=== PATIENT | female | born 1960 | race Caucasian/White ===

== ENCOUNTER 2018-02-24 11:25 | Inpatient (IN) | payer OTHER ==
[~2018-02-24] VITALS: Ht 157.5 cm; Wt 62.6 kg
[~2018-02-24 11:25] MED LIST: ABILIFY 2 MG2 MG OR; ABILIFY1 MG/1 ML PO; ALEVE220 M1 PO; CLONAZEPAM OR; MECLIZINE 25 MG25 M1 PO; RITALIN20 MG PO; TOPAMAX100 MG PO; VALIUM5 MG PO; WELLBUTRIN XL300 M1 PO; ZOLOFT100 MG PO
[2018-02-24 11:35] VITALS: BP 118/60
[2018-02-24 12:16] LABS: ABSOLUTE NEUTROPHILS 5.8 thou/uL (1.4-8.2); BASOPHILS 0.4 % (0.0-2.0); EOSINOPHILS 0.3 % (0.0-3.0); HEMATOCRIT 44.6 % (37.0-47.0); HEMOGLOBIN 15.2 gm/dL (12.0-15.0); LYMPHOCYTES 22.4 % (24.0-44.0); MCH 30.9 pg (26.0-34.0); MCHC 34.2 g/dL (28.0-37.0); MCV 90.3 fL (80.0-100.0); MONOCYTES 9.4 % (1.0-8.0); PLATELET COUNT 335 thou/uL (150-400); POLYS 67.5 % (36.0-66.0); RBC 4.94 mil/uL (4.20-5.00); RDW 14.6 % (10.5-14.5); WBC 8.6 thou/uL (4.0-11.0)
[2018-02-24 12:24] LABS: CALCIUM 8.6 mg/dL (8.5-10.1); POTASSIUM 3.2 mmol/L (3.5-5.1)
[2018-02-24 12:31] LABS: APTT 34.8 Seconds (24.5-32.8); PROTIME 9.5 Seconds (9.3-11.4)
[2018-02-24] MEDS ORDERED: CYMBALTA60 MG PO (14:40)
[2018-02-24] MEDS ORDERED: ARIPIPRAZOLE2 MG PO (14:40)
[2018-02-24] MEDS ORDERED: CLONAZEPAM2 MG PO (14:41)
[2018-02-24] MEDS ORDERED: SINGULAIR 10 MG10 M1 PO (14:43)
[2018-02-24 15:31] VITALS: BP 120/57
[2018-02-24 17:07] LABS: ALBUMIN 3.2 g/dL (3.4-5.0); DIRECT BILIRUBIN 0.1 mg/dL (<0.1-0.3); MAGNESIUM 1.8 mg/dL (1.8-2.4); TOTAL BILIRUBIN 0.2 mg/dL (<0.1-1.0); TOTAL PROTEIN 7.7 g/dL (6.4-8.2)
[2018-02-24 19:16] VITALS: BP 98/42
--- NOTE | 2018-02-24 20:58 | NUR ---
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 SHE IS CURRENTLY RETIRED AND LIVES WITH HER WHO IS AT BEDSIDE. SHE CARES FOR DOGS AND RECENTLY ONE OF THE DOGS . PATIENT STATES HAVING HISTORY OF DEPRESSION AND ANXIETY WHICH SHE SAYS RUNS IN HER FAMILY. PATIENT HAS PAIN FROM HEADACHED AND ABDOMINAL AND CHEST PAIN FROM COUGHING. TYLENOL HELPED REDUCE THE PAIN. SPUTUM CUP IS AT BEDSIDE. SHE IS ON RESPIRATORY DROPLET PRECAUTIONS.
[2018-02-25 02:37] VITALS: BP 118/72
[2018-02-25 05:31] LABS: HEMATOCRIT 37.7 % (37.0-47.0); MCH 30.6 pg (26.0-34.0); MCHC 33.7 g/dL (28.0-37.0); PLATELET COUNT 312 thou/uL (150-400); RBC 4.15 mil/uL (4.20-5.00); RDW 14.5 % (10.5-14.5)
[2018-02-25 05:33] LABS: HEMOGLOBIN 12.7 gm/dL (12.0-15.0)
[2018-02-25 05:52] LABS: ALBUMIN 2.3 g/dL (3.4-5.0); CALCIUM 7.7 mg/dL (8.5-10.1); CREATININE 0.7 mg/dL (0.6-1.0); MAGNESIUM 1.8 mg/dL (1.8-2.4); POTASSIUM 3.3 mmol/L (3.5-5.1); TOTAL BILIRUBIN 0.2 mg/dL (<0.1-1.0); TOTAL PROTEIN 5.9 g/dL (6.4-8.2)
[2018-02-25 06:27] LABS: ABSOLUTE NEUTROPHILS 2.6 thou/uL (1.4-8.2)
[2018-02-25 06:28] LABS: PLATELET ESTIMATE NORMAL
--- NOTE | 2018-02-25 06:37 | NUR ---
Pt a/o x 4. RA. VSS. On droplet precaution for positive flu. C/o chest pain upon cough. Infrequent non-productive cough, no sputum. No apparent distress noted at this time. Fall precautions maintained. Call light within reach. Will continue to monitor.
[2018-02-25 08:00] VITALS: BP 113/59
--- NOTE | 2018-02-25 08:06 | EKG ---
[address] [place] [address] ELECTROCARDIOGRAM REPORT Name: DANEMILTON Gonsales Room #: 458-P ADM IN M.R.#: [id number] Admission: 02/24/18 Attend Phys: Ozzy Choe MD Discharge: Date of : 64 Report #: [id number] THIS REPORT FOR: //name// [facility] ED Test Date: 2018-02-24 Test Time: 14:21:59 Pat Name: MILTON VELA Department: Room: 458 Gender: F Wastewater Engineer: PARAS : [id number] Requested By: Loc Ledbetter Order Number: [id number] MD: Jesús Platt Measurements Intervals [place] Rate: 100 P: 58 KS: 135 QRS: 56 QRSD: 87 T: 268 QT: 317 QTc: 409 Interpretive Statements Sinus tachycardia Low voltage, extremity and precordial leads Nonspecific ST and T wave abnormality Compared to ECG 01/02/2010 07:27:00 Low QRS voltage now present ST and T wave abnormality is new Electronically Signed On 02-25-2018 8:06:04 HAND SPRING REPAIRER HELPER by Jesús Platt [email or web address] <ELECTRONICALLY SIGNED> By: Jesús Platt MD, FACC 02/25/18 0806 1421 1421 Jesús Platt MD, [facility] /EPI
[2018-02-25 20:06] VITALS: BP 122/76
--- NOTE | 2018-02-26 04:25 | NUR ---
ASSUMED CARE AT START OF SHIFT, PT HAVE NON-PRODUCTIVE COUGH, DNEIS PAIN OR NAUSEA. DISCUSSED PLAN OF CARE AND AGREEABLE, GAMING COMMISSIONER SR . WILL CONITNUE CURRENT PLAN OF CARE.
[2018-02-26 04:26] VITALS: BP 134/82
[2018-02-26 05:26] LABS: HEMATOCRIT 36.3 % (37.0-47.0); MCH 29.7 pg (26.0-34.0); MCHC 33.1 g/dL (28.0-37.0); MCV 89.8 fL (80.0-100.0); RBC 4.04 mil/uL (4.20-5.00); RDW 14.2 % (10.5-14.5); WBC 6.8 thou/uL (4.0-11.0)
[2018-02-26 05:35] LABS: CALCIUM 8.2 mg/dL (8.5-10.1); CREATININE 0.7 mg/dL (0.6-1.0); POTASSIUM 3.3 mmol/L (3.5-5.1)
[2018-02-26 07:32] VITALS: BP 147/84
[2018-02-26] MEDS ORDERED: CEFDINIR300 MG PO (15:55)
[2018-02-26] MEDS ORDERED: OSELB75 PO (15:55)
[2018-02-26 16:08] VITALS: BP 147/84
--- NOTE | 2018-02-26 17:15 | NUR ---
ASSUMED CARE OF PT AT APPROX 0700. PT IS ALERT AND ORIENTED X4, MONITORED ON TELE AND ABLE TO MAINTAIN 02 SAT >90 ON RA. DENIES PAIN AND SOA. COMPLAINS OF NAUSEA THAT IS RESOLVED WITH PRN MEDICATION. PT ANXIOUS FOR DC. ASSESSMENT CHARTED. RECIEVED ORDERS FOR DC. COMLETED DC. WENT OVER NEW MEDICATIONS AND DISCHARGE INSTRUCTIONS. PATIENT DENIES ANY FURTHER CONCERNS/COMPLAINTS. LEFT IN WHEELCHAIR VIA VOLUNTEER TRANSPORT. ALL BELONGINGS WITH PT AND . PT HAS MET POC GOALS.
== END 2018-02-26 17:34 | disposition home or self-care (01) | DRG 195 ==
LOC: ER 11:25 → EROBS 15:17 → 4W 15:17 → ENTRNSPT 02-26 17:16 → 4W 02-26 17:34
PROVIDERS: Emergency Medicine; Hospitalist; ADMIT Internal Medicine
DX: J10.08 Influenza due to other identified influenza virus with other specified pneumonia (principal); J15.9 Unspecified bacterial pneumonia; F32.9 Major depressive disorder, single episode, unspecified; J45.909 Unspecified asthma, uncomplicated; E87.6 Hypokalemia; Z79.899 Other long term (current) drug therapy; Z90.710 Acquired absence of both cervix and uterus; Z90.81 Acquired absence of spleen; Z88.1 Allergy status to other antibiotic agents; Z88.8 Allergy status to other drugs, medicaments and biological substances
CPT/HCPCS: 10045